=== PATIENT | female | born 1975 | race African-American/Black ===

== ENCOUNTER 2022-01-14 16:46 | Emergency (ER) | payer MEDICAID ==
[~2022-01-14] VITALS: Ht 165.1 cm; Wt 56.7 kg
[2022-01-14 16:53] VITALS: BP 150/77
--- NOTE | 2022-01-14 17:11 | NUR ---
URINE SPECIMEN COLLECTED AND WALKED TO LAB HANDED TO CPT JONES
--- NOTE | 2022-01-14 17:22 | NUR ---
DR. SORENSON EVALUATING PATIENT AT BESIDE
[2022-01-14] MEDS ORDERED: KETOROLAC 60 MG/2 ML VIAL IM ONE ×3 (17:25→17:36)
--- NOTE | 2022-01-14 17:25 | NUR ---
46 Y/O FEMALE BIB SELF DUE TO RIGHT UNDER BREAST/BACK PAIN WHEN TAKING A DEEP BREATH. PATIENT HAS PAIN WHEM INHALING. PAIN IS AT 8/10 SHARP PAIN. PT DENIES TAKING ANYTHING AT HOME TO PROVIDE RELIEF. PATIENT HAS NAUSEA AND VOMITING. DENIES ANY DIARRHEA OR DIZZINESS. PMH: DENIES NKA
[2022-01-14] MEDS ORDERED: IBUP-2213 PO (17:31)
--- NOTE | 2022-01-14 18:00 | NUR ---
Patient discharged with v/s stable. Written and verbal after care instructions given. Patient alert, oriented and verbalized understanding of instructions. Ambulatory with steady gait. All questions addressed prior to discharge. ID band removed. Patient advised to follow up with PMD. Rx of IBUPROFEN given. Opportunity to ask questions provided and answered.
--- NOTE | 2022-01-14 18:01 | NUR ---
Chart checked and completed. The patient's care was reviewed and supervised by Manasa Cesar RN.
== END 2022-01-14 18:00 | disposition home or self-care (01) ==
LOC: MED 16:46
DX: R07.89 Other chest pain (principal); F17.200 Nicotine dependence, unspecified, uncomplicated; F12.90 Cannabis use, unspecified, uncomplicated
CPT/HCPCS: 81002; 81025; 96372; 99283; J1885

== ENCOUNTER 2022-03-03 00:28 | Emergency (ER) | payer MEDICAID ==
[~2022-03-03] VITALS: Ht 165.1 cm; Wt 81.6 kg
[~2022-03-03 00:28] MED LIST: IBUP-2213 PO
[2022-03-03 00:30] VITALS: BP 159/83
[2022-03-03 01:14] LABS: BASOPHILS % (AUTO) 0.7 % (0.0-2.0); EOSINOPHILS # (AUTO) 0.3 K/uL (0-0.4); EOSINOPHILS % (AUTO) 5.6 % (0.0-4.0); HEMATOCRIT 29.5 % (36-48); HEMOGLOBIN 9.5 g/dL (12.0-16.0); LYMPHOCYTES # (AUTO) 1.2 K/uL (2.5-16.5); LYMPHOCYTES % (AUTO) 19.4 % (20.5-51.1); MEAN CORPUSCULAR HEMOGLOBIN 26 pg (27-31); MEAN CORPUSCULAR HGB CONC 32 g/dL (33-37); MEAN CORPUSCULAR VOLUME 81.3 fL (80-94); MONOCYTES # (AUTO) 1.2 K/uL (0.8-1.0); MONOCYTES % (AUTO) 18.7 % (1.7-9.3); NEUTROPHILS # (AUTO) 3.4 K/uL (1.8-7.7); NEUTROPHILS % (AUTO) 55.6 % (42.2-75.2); PLATELET COUNT (AUTO) 469 K/uL (140-450); RED BLOOD CELL COUNT(AUTO) 3.63 MIL/uL (4.20-5.40); RED CELL DISTRIBUTION WIDTH 15.9 % (11.6-13.7); WHITE BLOOD COUNT (AUTO) 6.2 K/uL (4.8-10.8)
[2022-03-03 01:39] LABS: ALBUMIN 3.3 g/dL (3.4-5.0); CARBON DIOXIDE 33.2 mmol/L (21-32); CREATININE 1.1 mg/dL (0.6-1.3); POTASSIUM 3.2 mmol/L (3.5-5.1); TOTAL BILIRUBIN 0.4 mg/dL (0.0-1.0)
--- NOTE | 2022-03-03 02:43 | NUR ---
PT TAKEN TO BED 2
[2022-03-03] MEDS ORDERED: ONDANSETRON 4 MG/2 ML VIAL IVP ONE (03:10)
[2022-03-03] MEDS ORDERED: NACL 0.9% 1,000 ML IV ONE (03:10)
--- NOTE | 2022-03-03 03:35 | NUR ---
46 Y.O F BIB SELF C/O N/V/D X 1WEEK. PT HAS 6/10 ABDOMINAL PAIN. NO SOB, NOR CHEST PAIN. A&OX4, SKIN INTACT, STEADY GAIT, PMH : DENIES NKDA
[2022-03-03] MEDS ORDERED: POTASSIUM CHLORIDE 10 MEQ TABER PO ONE (03:45)
[2022-03-03] MEDS ORDERED: BEN10 PO (04:11)
[2022-03-03] MEDS ORDERED: ONDA-188 SL (04:11)
[2022-03-03 05:43] VITALS: BP 159/83
--- NOTE | 2022-03-03 05:44 | NUR ---
Patient discharged with v/s stable. Written and verbal after care instructions given and explained. Patient alert, oriented and verbalized understanding of instructions. Ambulatory with steady gait. All questions addressed prior to discharge. ID band removed. Patient advised to follow up with PMD. Rx of BENTYL AND ZOFRAN given. Patient educated on indication of medication including possible reaction and side effects. Opportunity to ask questions provided and answered.
== END 2022-03-03 05:42 | disposition home or self-care (01) ==
LOC: MED 00:28
DX: R11.2 Nausea with vomiting, unspecified (principal); R19.7 Diarrhea, unspecified; R10.84 Generalized abdominal pain; Z79.899 Other long term (current) drug therapy; Z79.1 Long term (current) use of non-steroidal anti-inflammatories (NSAID)
CPT/HCPCS: 36415; 80053; 81025; 83690; 85025; 99283; J7030

== ENCOUNTER 2022-03-20 23:07 | Emergency (ER) | payer MEDICAID ==
[~2022-03-20] VITALS: Ht 165.1 cm; Wt 72.6 kg
[~2022-03-20 23:07] MED LIST changes: +BEN10 PO; +ONDA-188 SL
[2022-03-20 23:34] VITALS: BP 138/72
--- NOTE | 2022-03-20 23:38 | NUR ---
TO LOBBY FOLLOWING TRIAGE
--- NOTE | 2022-03-20 23:45 | NUR ---
AMBULATED TO BED #1
[2022-03-20] MEDS ORDERED: FAMOTIDINE 20 MG TAB PO ONE (23:55)
[2022-03-20] MEDS ORDERED: predniSONE 20 MG TAB PO ONE (23:55)
[2022-03-20] MEDS ORDERED: FAMO-90 PO (23:58)
[2022-03-20] MEDS ORDERED: PRED20TA6 PO (23:58)
[2022-03-20] MEDS ORDERED: DIPH25TA53 PO (23:58)
--- NOTE | 2022-03-21 00:12 | NUR ---
46 yo/f presents to ED w c/o rash to abdomen, chest, arms and upper legs, itchy, occasional pain no pain at this time, ongoing x2 weeks s/p getting a new dog. Pt denies any fevers, chills, n/v/d, sob or other symptoms. Pt has raised rash to arms, chest, back and upper legs, non-blistered. pmh: denies allergies: denies
--- NOTE | 2022-03-21 00:33 | NUR ---
pt reports itching has resolved at this time.
[2022-03-21 00:37] VITALS: BP 138/72
--- NOTE | 2022-03-21 00:37 | NUR ---
Patient discharged with v/s stable. Written and verbal after care instructions given and explained. Patient alert, oriented and verbalized understanding of instructions. Ambulatory with steady gait. All questions addressed prior to discharge. ID band removed. Patient advised to follow up with PMD. Rx of benadryl, pepcid, prednison given. Patient educated on indication of medication including possible reaction and side effects. Opportunity to ask questions provided and answered.
== END 2022-03-21 00:37 | disposition home or self-care (01) ==
LOC: MED 23:07
DX: R21 Rash and other nonspecific skin eruption (principal); L29.9 Pruritus, unspecified; Z79.899 Other long term (current) drug therapy; Z79.1 Long term (current) use of non-steroidal anti-inflammatories (NSAID)
CPT/HCPCS: 99283; J7512

== ENCOUNTER 2022-05-02 16:13 | Emergency (ER) | payer MEDICAID ==
[~2022-05-02] VITALS: Ht 160 cm; Wt 64.9 kg
[~2022-05-02 16:13] MED LIST changes: +DIPH25TA53 PO; +FAMO-90 PO; +PRED20TA6 PO
[2022-05-02 16:59] VITALS: BP 155/106
--- NOTE | 2022-05-02 17:29 | NUR ---
SAMAN HYDE AT PT SIDE FOR EVAL WITH FEMALE GEOMATICS PROFESSOR
--- NOTE | 2022-05-02 17:45 | NUR ---
PT STATED SHE WANTED TO " DO SOME STUFF" AND WALKED OUT OF ED
--- NOTE | 2022-05-02 17:45 | NUR ---
PATIENT ELOPED FROM FACILITY. DISCHARGE INSTRUCTIONS NOT GIVEN TO PATIENT. SAMAN HYDE NOTIFIED.
[2022-05-02 17:49] LABS: APPEARANCE,URINE CLEAR (CLEAR); BILIRUBIN,URINE 2+ (NEGATIVE); BLOOD, URINE NEGATIVE (NEGATIVE); COLOR,URINE YELLOW (YELLOW); LEUKOCYTE ESTERASE ,URINE NEGATIVE (NEGATIVE); NITRITE, URINE NEGATIVE (NEGATIVE); UGLUCOSE NEGATIVE (NEGATIVE)
[2022-05-03] MEDS ORDERED: DIPH25TA53 PO (15:04)
[2022-05-03] MEDS ORDERED: DOXY-565 PO (15:04)
[2022-05-03] MEDS ORDERED: IBUP-2213 PO (15:04)
== END 2022-05-02 17:45 | disposition left against medical advice (07) ==
LOC: MED 16:13
DX: R60.9 Edema, unspecified (principal); Z11.3 Encounter for screening for infections with a predominantly sexual mode of transmission; Z79.899 Other long term (current) drug therapy
CPT/HCPCS: 81001; 81003; 81025; 87491; 99284

== ENCOUNTER 2022-05-03 12:40 | Emergency (ER) | payer MEDICAID ==
[~2022-05-03] VITALS: Ht 165.1 cm; Wt 64.9 kg
[2022-05-03 12:50] VITALS: BP 152/94
--- NOTE | 2022-05-03 12:56 | NUR ---
PT AMB TO BED 11.
--- NOTE | 2022-05-03 13:03 | NUR ---
SAMAN JAMES AT BEDSIDE FOR EVALUATION
[2022-05-03] MEDS ORDERED: cefTRIAXone 500 MG VIAL IM ONE (13:10)
[2022-05-03] MEDS ORDERED: PENICILLIN G BENZATHINE L-A 1.2 MU/2 ML SYR IM ONE ×2 (13:10→13:45)
--- NOTE | 2022-05-03 13:30 | NUR ---
46 Y/O FEMALE PRESENTS TO ED WITH MULTIPLE COMPLAINTS, PRIMARY C/O RIGHT ANKLE PAIN + SWELLING X 1 & 1/2 WEEKS. STATES PAIN IS 8/10 THROBBING, WORSENING WITH AMBULATION. DENIES TRAUMA OR INJURY. ALSO C/O SKIN RASH UNAWARE OF POSSIBLE CAUSE, DENIES TRYING NEW DETERGENT, LOTION OR NEW FOODS. LASTLY, C/O VAGINAL LESION X 1 & 1/2 WEEKS, DENIES TRAUMA OR INJURY. STATES HAVING MULTIPLE SEX ENCOUNTERS WITH MULTIPLE PARTNERS, HAS A CONCERN OF POSSIBLE STI. DENIES FEVER, CHILLS, SOB, CP. DENIES TAKING MEDICATION FOR PAIN, HAS USED TOPICAL BENADRYL AND IS EFFECTIVE. NKA
[2022-05-03] MEDS ORDERED: LIDOCAINE MPF 1% 5 ML ONE (13:37)
[2022-05-03] MEDS ORDERED: IBUP-2213 PO (15:04)
[2022-05-03] MEDS ORDERED: DIPH25TA53 PO (15:04)
[2022-05-03] MEDS ORDERED: DOXY-565 PO (15:04)
--- NOTE | 2022-05-03 15:13 | NUR ---
SHIRA WRAP X 1 TO R ANKLE. + CMS
[2022-05-03 15:25] VITALS: BP 172/108
--- NOTE | 2022-05-03 15:25 | NUR ---
Patient discharged with v/s stable. Written and verbal after care instructions about ankle sprain, rash, chlamydia given and explained. Patient alert, oriented and verbalized understanding of instructions. Ambulatory with steady gait. All questions addressed prior to discharge. ID band removed. Patient advised to follow up with PMD. Rx of Ibuprofen, Doxycycline, Benadryl given. Patient educated on indication of medication including possible reaction and side effects. Opportunity to ask questions provided and answered.
== END 2022-05-03 15:25 | disposition home or self-care (01) ==
LOC: MED 12:40
DX: S93.401A Sprain of unspecified ligament of right ankle, initial encounter (principal); A64 Unspecified sexually transmitted disease; A74.9 Chlamydial infection, unspecified; R03.0 Elevated blood-pressure reading, without diagnosis of hypertension; F17.210 Nicotine dependence, cigarettes, uncomplicated; Z79.899 Other long term (current) drug therapy; X58.XXXA Exposure to other specified factors, initial encounter; Y93.89 Activity, other specified; Y92.89 Other specified places as the place of occurrence of the external cause; Y99.8 Other external cause status
CPT/HCPCS: 73610; 81002; 81025; 86592; 86703; 96372; 99284; J0561; J0696; J2001

== ENCOUNTER 2022-09-03 06:23 | Emergency (ER) | payer MEDICAID ==
[~2022-09-03] VITALS: Ht 165.1 cm; Wt 63.5 kg
[~2022-09-03 06:23] MED LIST changes: +DOXY-745 PO
[2022-09-03 06:28] VITALS: BP 173/89
--- NOTE | 2022-09-03 06:28 | NUR ---
TO BED AMBULATORY
--- NOTE | 2022-09-03 06:40 | NUR ---
ER MD AT BEDSIDE FOR EXAM
--- NOTE | 2022-09-03 06:45 | NUR ---
RECEIVED IN BED 11 WITH C/O CHEST PAIN, RADIATING TO HER BACK SINCE YESTERDAY
[2022-09-03] MEDS ORDERED: KETOROLAC 30 MG/ML VIAL IM ONE (06:50)
[2022-09-03 07:20] LABS: BASOPHILS % (AUTO) 0.5 % (0.0-2.0); EOSINOPHILS # (AUTO) 0.5 K/uL (0-0.4); EOSINOPHILS % (AUTO) 7.8 % (0.0-4.0); HEMATOCRIT 27.7 % (36-48); HEMOGLOBIN 8.9 g/dL (12.0-16.0); LYMPHOCYTES # (AUTO) 1.2 K/uL (2.5-16.5); LYMPHOCYTES % (AUTO) 20.2 % (20.5-51.1); MEAN CORPUSCULAR HEMOGLOBIN 26 pg (27-31); MEAN CORPUSCULAR HGB CONC 32 g/dL (33-37); MONOCYTES # (AUTO) 0.6 K/uL (0.8-1.0); MONOCYTES % (AUTO) 10.5 % (1.7-9.3); NEUTROPHILS # (AUTO) 3.7 K/uL (1.8-7.7); PLATELET COUNT (AUTO) 327 K/uL (140-450); RED BLOOD CELL COUNT(AUTO) 3.47 MIL/uL (4.20-5.40); RED CELL DISTRIBUTION WIDTH 17.9 % (11.6-13.7); WHITE BLOOD COUNT (AUTO) 6.1 K/uL (4.8-10.8)
[2022-09-03 07:29] LABS: ANION GAP 11.7 (8-16); CARBON DIOXIDE 28.9 mmol/L (21-32); CREATININE 0.7 mg/dL (0.6-1.3); POTASSIUM 3.6 mmol/L (3.5-5.1)
--- NOTE | 2022-09-03 07:58 | NUR ---
DR HUTCHINSON MADE AWARE OF VS PRIOR TO DC, BP 189/92, PER MD PT STABLE TO DC
[2022-09-03 08:01] VITALS: BP 189/92
--- NOTE | 2022-09-03 08:02 | NUR ---
Patient discharged with v/s stable. Written and verbal after care instructions ABOUT CHEST WALL PAIN given and explained. Patient verbalized understanding. Ambulatory with steady gait. All questions addressed prior to discharge. Advised to follow up with PMD.
== END 2022-09-03 06:28 | disposition home or self-care (01) ==
LOC: MED 06:23
DX: R07.89 Other chest pain (principal); F17.210 Nicotine dependence, cigarettes, uncomplicated; Z79.899 Other long term (current) drug therapy
CPT/HCPCS: 36415; 71045; 80048; 84484; 85025; 93005; 96372; 99285; J1885; Q0092

== ENCOUNTER 2024-04-19 01:30 | Emergency (ER) | payer MEDICAID ==
[~2024-04-19] VITALS: Ht 165.1 cm; Wt 63.5 kg
[~2024-04-19 01:30] MED LIST changes: +DOXY-22 PO; -DOXY-745 PO
[2024-04-19 01:35] VITALS: BP 132/75; PULSE 86; RESP 18; TEMP 98; O2SAT 98
[2024-04-19 01:38] VITALS: BP 132/75; PULSE 86; RESP 18; TEMP 98; O2SAT 98
[2024-04-19] MEDS ORDERED: CEPH-588 PO (01:40)
[2024-04-19] MEDS ORDERED: cefTRIAXone 1,000 MG VIAL ONE (01:43)
[2024-04-19] MEDS ORDERED: LIDOCAINE MPF 1% 5 ML ONE (01:44)
[2024-04-19] MEDS: cefTRIAXone 1,000 MG in LIDOCAINE MPF 1% 2.1 ML IM ONE (01:46)
== END 2024-04-19 01:55 | disposition home or self-care (01) ==
LOC: MED 01:30
DX: S50.361A Insect bite (nonvenomous) of right elbow, initial encounter (principal); S80.861A Insect bite (nonvenomous), right lower leg, initial encounter; S70.362A Insect bite (nonvenomous), left thigh, initial encounter; Z79.899 Other long term (current) drug therapy; W57.XXXA Bitten or stung by nonvenomous insect and other nonvenomous arthropods, initial encounter; Y92.89 Other specified places as the place of occurrence of the external cause; Y93.89 Activity, other specified; Y99.8 Other external cause status
CPT/HCPCS: 96372; 99283; J0696; J2001